=== PATIENT | female | born 1980 | race Hispanic/Latino ===

== ENCOUNTER 2017-09-14 18:26 | Emergency (ER) | payer OTHER ==
[2017-09-14] MEDS ORDERED: IBUPROFEN 600 MG TAB As Ordered (18:42)
[2017-09-14] MEDS: IBUPROFEN 600 MG TAB PO (18:50)
[2017-09-14 23:20] LABS: INFLUENZA A AMPLIFICATION POSITIVE (NEGATIVE); INFLUENZA B AMPLIFICATION NEGATIVE (NEGATIVE); RSV AMPLIFICATION NEGATIVE (NEGATIVE)
[2017-09-14] MEDS: BENZONATATE 100 MG CAP PO (23:48)
[2017-09-14] MEDS: OSELTAMIVIR PHOSPHATE 75 MG CAP (TAMIFLU) PO (23:49)
== END 2017-09-15 00:01 | disposition home or self-care (01) ==
LOC: M ED 09-15 00:01
DX: J09.X2 Influenza due to identified novel influenza A virus with other respiratory manifestations (principal); R94.31 Abnormal electrocardiogram [ECG] [EKG]
CPT/HCPCS: 93005